=== PATIENT | female | born 1965 | race Caucasian/White ===

== ENCOUNTER 2018-07-04 20:46 | Emergency (ER) | payer BC ==
--- NOTE | 2018-07-04 21:25 | ED ---
Abdominal Pain/Female - HPI Summary HPI Summary: Patient complains of sudden onset right upper quadrant pain starting this morning. Pain described as dull, constant, worse with movement or bending. Denies prior history of same, trauma, N/V, fever, decreased by mouth intake, cough, sore throat, CP, SOB, diarrhea, change in urine, vaginal symptoms, change in BM. Medical history is PVCs. Patient on estrogen. Abdominal surgical history is totally hysterectomy, with a couple bladder lifts. Active abdominal pain 12/19. - History of Current Complaint Chief Complaint: EDAbdPain Stated Complaint: RT RIB PAIN Time Seen by Provider: 07/04/18 21:08 Hx Obtained From: Patient Onset/Duration: Sudden Onset Timing: Constant Severity Initially: Moderate Severity Currently: Moderate Pain Intensity: 6 Pain Scale Used: 0-10 Numeric Location: Discrete At: RUQ Radiates: No Character: Dull Aggravating Factor(s): Movement Alleviating Factor(s): Position Associated Signs and Symptoms: Positive: Negative Allergies/Adverse Reactions: Allergies Allergy/AdvReac Type Severity Reaction Status Date / Time No Known Allergies Allergy Verified 07/04/18 20:52 PMH/Surg Hx/FS Hx/Imm Hx Endocrine/Hematology History: Denies: Hx Anticoagulant Therapy Cardiovascular History: Reports: Other Cardiovascular Problems/Disorders - HISTORY OF PVCS Denies: Hx Cardiac Arrest GI History: Reports: Hx Gastroesophageal Reflux Disease, Hx Hiatal Hernia History: Denies: Hx Dialysis Comment Only: Other Problems/Disorders - BLADDER ISSUES Sensory History: Reports: Hx Contacts or Glasses - GLASSES Denies: Hx Hearing Aid Opthamlomology History: Reports: Hx Contacts or Glasses - GLASSES Neurological History: Denies: Hx CVA Psychiatric History: Denies: Hx Autism Comment Only: Hx Depression - DEPRESSION IN THE PAST= OKI NOW - Cancer History Hx Chemotherapy: No Hx Radiation Therapy: No - Surgical History Surgery Procedure, Year, and Place: 2 [place]IFTS[place] 2002, [place] [facility] [place] [facility] [place] Hx Anesthesia Reactions: No Infectious Disease History: No Infectious Disease History: Denies: Traveled Outside the [place] in Last 30 Days - Family History Known Family History: Positive: Unknown - Social History Lives: With Family Alcohol Use: Weekly Alcohol Amount: 2 DRINKS/WEEK Substance Use Type: Reports: None Smoking Status (MU): Heavy Every Day Tobacco Smoker Amount Used/How Often: 1/4 PPD FOR 5 YRS Length of Time of Smoking/Using Tobacco: 5 YRS Have You Smoked in the Last Year: No Review of Systems Constitutional: Negative Eyes: Negative ENT: Negative Cardiovascular: Negative Respiratory: Negative Positive: Abdominal Pain Genitourinary: Negative Musculoskeletal: Negative Skin: Negative Neurological: Negative Psychological: Normal All Other Systems Reviewed And Are Negative: Yes Physical Exam - Summary Physical Exam Summary: Positive Mix's versus rib pain. No ecchymosis, erythema, swelling, deformity noted. Abdominal exam otherwise unremarkable. Triage Information Reviewed: Yes Vital Signs On Initial Exam: Initial Vitals Temp Pulse Resp BP Pulse Ox 97.0 F 88 16 156/98 97 07/04/18 20:48 07/04/18 20:48 07/04/18 20:48 07/04/18 20:48 07/04/18 20:48 Vital Signs Reviewed: Yes Appearance: Positive: Well-Appearing Skin: Positive: Warm Head/Face: Positive: Normal Head/Face Inspection Eyes: Positive: Normal Neck: Positive: Supple Respiratory/Lung Sounds: Positive: Clear to Auscultation Cardiovascular: Positive: Normal Abdomen Description: Positive: Other: Musculoskeletal: Positive: Normal Neurological: Positive: Normal Psychiatric: Positive: Normal AVPU Assessment: Alert - [place] Coma Scale Best Eye Response: 4 - Spontaneous Best Motor Response: 6 - Obeys Commands Best Verbal Response: 5 - Oriented Coma Scale Total: 15 Diagnostics - Vital Signs Vital Signs Temp Pulse Resp BP Pulse Ox 07/04/18 20:48 97.0 F 88 16 156/98 97 - Laboratory Result Diagrams: 07/04/18 21:27 07/04/18 21:27 Lab Statement: Any lab studies that have been ordered have been reviewed, and results considered in the medical decision making process. - Ultrasound No standard instances Ultrasound Interpretation Completed By: Radiologist Summary of Ultrasound Findings: Ultrasound gallbladder positive for cholelithiasis. No gallbladder wall thickening or pericholecystic fluid. Hepatic steatosis. Abdominal Pain Fem Course/Dx - Course Course Of Treatment: Patient complains of sudden onset right upper quadrant pain starting this morning. Pain described as dull, constant, worse with movement or bending. Denies prior history of same, trauma, N/V, fever, decreased by mouth intake, cough, sore throat, CP, SOB, diarrhea, change in urine, vaginal symptoms, change in BM. Medical history is PVCs. Patient on estrogen. Abdominal surgical history is totally hysterectomy, with a couple bladder lifts. Active abdominal pain 6/10. Physical exam:Positive Mix's versus rib pain. No ecchymosis, erythema, swelling, deformity noted. Abdominal exam otherwise unremarkable. Vital signs within normal limits. Labs unremarkable. Ultrasound gallbladder positive for clue physis without any indication of code the cystitis. Physical exam and symptoms fever chest wall pain versus biliary colic. This is first onset of this pain. Patient has been advised to observe pain and pattern of onset, specifically whether related to eating or not. Any internal trial of ibuprofen 600 mg 3 times a day for chest wall pain. Patient understands and improves a plan. - Diagnoses Provider Diagnoses: Right upper quadrant pain Discharge - Sign-Out/Discharge Documenting (check all that apply): Patient Departure - Discharge Plan Condition: Stable Disposition: HOME Patient Education Materials: Chest Wall Pain (ED), Biliary Colic (ED) Referrals: Vin Lorenz MD [Primary Care Provider] - Luis Manuel Medina DO [Doctor of Osteopathy] - Additional Instructions: Try 600 mg ibuprofen 3 times a day for a few days to see if right-sided pain improves. If symptoms appear to be related to eating, associated with nausea and vomiting, follow-up with primary care to arrange for further evaluation with either GI or Gen. surgery. He turned to the ED for any new or worsening symptoms. - Billing Disposition and Condition Condition: STABLE Disposition: Home
[2018-07-04 21:37] LABS: ABS Basophils 0.1 10^3/ul (0-0.2); ABS Eosinophils 0.2 10^3/ul (0-0.6); ABS Lymphocytes 3.3 10^3/ul (1.0-4.8); ABS Monocytes 0.5 10^3/ul (0-0.8); ABS Neutrophils 3.7 10^3/ul (1.5-7.7); ABS Nucleated RBC 0 10^3/ul; Eosinophil % 3.2 %; Hematocrit 39 % (35-47); Hemoglobin 12.8 g/dl (12.0-16.0); Lymphocyte % 41.8 %; Mean Corpuscular HGB Conc 33 g/dl (31-36); Mean Corpuscular Hemoglobin 29 pg (27-31); Mean Corpuscular Volume 87 fL (80-97); Mean Platelet Volume 6.9 fL (7.4-10.4); Nucleated Red Blood Cells % 0.1; Platelet Count 290 10^3/ul (150-450); Red Cell Distribution Width 14 % (10.5-15); White Blood Count 7.8 10^3/ul (3.5-10.8)
[2018-07-04 21:39] LABS: Urine Appearance Clear; Urine Bilirubin Negative (Negative); Urine Blood Negative (Negative); Urine Color Yellow; Urine Glucose Negative (Negative); Urine Ketones Negative (Negative); Urine Nitrite Negative (Negative); Urine Protein Negative (Negative); Urine Specific Gravity 1.019 (1.010-1.030); Urine Urobilinogen Negative (Negative)
[2018-07-04 21:54] LABS: Albumin 3.7 g/dL (3.2-5.2); Albumin/Globulin Ratio 1.2 (1-3); BUN/Creatinine Ratio 19.2 (8-20); C Reactive Protein 4.62 mg/L (<8.01); Calcium 9.2 mg/dL (8.6-10.3); EGFR Non-African American 77.6 (>60); Potassium 3.7 mmol/L (3.5-5.0); Total Bilirubin 0.2 mg/dL (0.2-1.0); Total Protein 6.7 g/dL (6.4-8.9)
[2018-07-04] MEDS ORDERED: Ibuprofen TAB* 600 MG PO ONE (22:54)
[2018-07-04] MEDS ORDERED: HYDROcodone/ACETAMIN 5-325 MG* 1 TAB PO ONE (22:54)
[2018-07-04 23:19] VITALS: BP 148/99
== END 2018-07-04 23:18 | disposition home or self-care (01) ==
LOC: ED 20:46
DX: R10.11 Right upper quadrant pain (principal); K80.20 Calculus of gallbladder without cholecystitis without obstruction; K76.0 Fatty (change of) liver, not elsewhere classified; Z90.710 Acquired absence of both cervix and uterus; Z87.891 Personal history of nicotine dependence
CPT/HCPCS: 36415; 76705; 80053; 81003; 83605; 83690; 85025; 86140; 99283; A9270-GY

== ENCOUNTER → 2018-07-28 05:51 | Day surgery (SDC) | payer BC ==
[~2018-07-28 05:51] MED LIST: Acetaminophen IV 1GM/100ML * 1,000 MG/100 ML VIAL IVPB ONE; Acetaminophen IV 1GM/100ML * 100 ML ONE; Buffered Lidocaine 1% SYRIN* 1 ML/SYRINGE INTRADERM ONE; Bupivacaine 0.25% W/EPI* 10 ML SDV ONE; Dexamethasone IV* 4 MG/ML 1 ML (4 MG) ONE; DiMENhydriNATE IV* 50 MG/ML VIAL IV PUSH PRN; DiMENhydriNATE IV* 50 MG/ML VIAL ONE; Famotidine IV* 10 MG/ML 2 ML (20 mg) IV ONE; Famotidine IV* 10 MG/ML 2 ML (20 mg) ONE; Glycopyrrolate IV* 0.2 MG/ML 1 ML VIAL ONE; HYDROmorphone INJ1* 1 MG/ML SYRINGE IV PRN; HYDROmorphone INJ1* 1 MG/ML SYRINGE ONE; Iohexol 300 (CONTRAST) 100 ML SDV IV ONE; Ketorolac INJ* 30 MG/ML 1 ML VIAL ONE; Lactated Ringers 1000 ML Bag* 1,000 ML IV SCH; Lidocaine 2% PF * 5 ML VIAL ONE; Midazolam* 1 MG/ML 5 ML VIAL (5 MG) ONE; Naloxone* 0.4 MG/ML 1 ML VIAL IV PRN; Neostigmine Methylsulfate* 1 MG/ML 10 ML VIAL (1 mg/ml) ONE; Ondansetron INJ* 2 MG/ML VIAL ONE; Propofol* 10 MG/ML 20 ML BTL ONE; Rocuronium* 10 MG/ML VIAL ONE; Scopolamine 1.5 mg* PATCH TRANSDERM PRN; Succinylcholine* 20 MG/ML 10 ML VIAL ONE; ceFAZolin 2 GM PREMIX in ORs 2 GM/50 ML BAG IVPB ONE; fentaNYL* 50 MCG/ML 2 ML VIAL (100 MCG VIAL) ONE
--- NOTE | 2018-07-28 08:29 | OP ---
Operative Report - Blank - Operative Report Date of Operation: 07/28/18 Note: Brief Operative Note Preop Dx: symptomatic cholelithiasis Postop Dx: same Procedure: Laparoscopic cholecystectomy Anesthesia: GET Surgeon: Rhonda Coordinator Volunteer Services: WILLARD Maria; SARITHA Garza Fluids: 1200 ml EBL: < 25 ml Specimen: gallbladder Drains: none Findings: dictated
[2018-07-28 10:25] VITALS: BP 130/75
--- NOTE | 2018-07-28 21:17 | OP ---
CC: Dr. Lorenz; Dr. Randle * DATE OF OPERATION: 07/28/18 - [facility] DATE OF : 65 SURGEON: Salvador Ellis MD TRANSCRIPTIONIST: WILLARD Haines ANESTHESIOLOGIST: Dr. Isidro. ANESTHESIA: General anesthetic, local infiltration. PRE-OP DIAGNOSIS: Chronic cholecystitis. POST-OP DIAGNOSIS: Chronic cholecystitis. OPERATIVE PROCEDURE: Laparoscopic cholecystectomy. DESCRIPTION OF PROCEDURE: The patient was supine on the operating room table. After adequate general anesthetic, compression stockings, Jordan Hugger warmer, and intravenous antibiotics, the abdomen was prepped with antiseptic, draped in a sterile fashion. Local infiltrative anesthesia was administered, 1% lidocaine and Marcaine, and the right upper quadrant incision was created. A 5- mm Visiport cannula was placed under direct vision. Insufflation was carried out with carbon dioxide. There was no evidence of injury in that region. Additional cannulae of 5 mm in periumbilical and right anterior axillary line and 12 mm in subxiphoid were placed through small stab wounds under direct vision. Gallbladder was tended upwards. The areolar tissue was taken down off the cystic duct and cystic artery. Critical view of safety was obtained. Cystic artery and duct were clipped and divided. Gallbladder was taken off the liver bed using electrocautery. Hemostasis was excellent. The gallbladder was removed through the subxiphoid port without difficulty. Hemostasis was again confirmed. Pneumoperitoneum was allowed to escape, and skin was closed with 5- 0 Vicryl followed by Steri-Strips. She tolerated the procedure well, was awoken and brought to Recovery in good condition. No complications. No drains. Pathologic specimen is gallbladder. Sponge and instrument counts correct. Estimated blood loss is 10 to 20 mL. [id number] #: [id number] MTDD
== END | disposition home or self-care (01) ==
LOC: OR 05:51
PROVIDERS: ATTEND Surgery
DX: K80.10 Calculus of gallbladder with chronic cholecystitis without obstruction (principal); F17.210 Nicotine dependence, cigarettes, uncomplicated
CPT/HCPCS: 88304; J0330; J0690; J1100; J1170; J1240; J1885; J2250; J2405; J2704; J2710; J3010

== ENCOUNTER → 2018-08-26 11:49 | Day surgery (SDC) | payer BC ==
[~2018-08-26 11:49] MED LIST changes: -Acetaminophen IV 1GM/100ML * 1,000 MG/100 ML VIAL IVPB ONE; -Acetaminophen IV 1GM/100ML * 100 ML ONE; -Bupivacaine 0.25% W/EPI* 10 ML SDV ONE; +Dexamethasone TAB* 4 MG ONE; +Dexamethasone TAB* 4 MG PO ONE; -DiMENhydriNATE IV* 50 MG/ML VIAL ONE; -Glycopyrrolate IV* 0.2 MG/ML 1 ML VIAL ONE; +HYDROcodone/ACET. 7.5/325 LIQ* 15 ML UDC ONE; -HYDROmorphone INJ1* 1 MG/ML SYRINGE IV PRN; -HYDROmorphone INJ1* 1 MG/ML SYRINGE ONE; -Iohexol 300 (CONTRAST) 100 ML SDV IV ONE; -Ketorolac INJ* 30 MG/ML 1 ML VIAL ONE; +Lidocain 1% EPI 1:100,000 * 30 ML MDV ONE; +Lidocaine 4% TOPICAL* 50 ML TOP.SOLN ONE; +Metoprolol Tartrate IV* 1 MG/ML 5 ML VIAL ONE; +Morphine VIAL* 4 MG/ML VIAL (1 ml vial) IV PRN; -Neostigmine Methylsulfate* 1 MG/ML 10 ML VIAL (1 mg/ml) ONE; -Ondansetron INJ* 2 MG/ML VIAL ONE; +Ondansetron ODT TAB* 4 MG ONE; +Ondansetron TAB* 4 MG PO ONE; +Oxymetazoline 0.05% NASAL SPR* 15 ML BTL ONE; +PROCHLORPERAZINE INJ 5 MG/ML 2 ML VIAL IV PRN; -Rocuronium* 10 MG/ML VIAL ONE; +Scopolamine PATCH Remove* 1 NOTE MISC PATCH OFF ONE; -Succinylcholine* 20 MG/ML 10 ML VIAL ONE; -ceFAZolin 2 GM PREMIX in ORs 2 GM/50 ML BAG IVPB ONE; +fentaNYL* 50 MCG/ML 2 ML VIAL (100 MCG VIAL) IV PRN; +hydrALAZINE IV* 20 MG/ML VIAL ONE; +oxyCODONE/Acetamin 5/325 MG* TAB PO PRN
[2018-08-26 16:05] VITALS: BP 131/93
--- NOTE | 2018-08-26 20:55 | OP ---
DATE OF OPERATION: 08/26/18 - [facility] DATE OF : 65. SURGEON: Bola Lynch MD ANESTHESIA: General laryngeal mask airway anesthesia. PRE-OP DIAGNOSIS: Septal deviation, inferior turbinate hypertrophy. POST-OP DIAGNOSIS: Septal deviation, inferior turbinate hypertrophy. OPERATIVE PROCEDURE: Nasal septoplasty with submucous resection of the inferior turbinates. COMPLICATIONS: None. DISPOSITION: Good. SPECIMEN: None. BLOOD LOSS: Minimum. DESCRIPTION OF PROCEDURE: The patient was taken to the operating room and placed in the supine position on the operating table, maintained with IV sedation, she was maintained with laryngeal mask airway anesthesia. Her nose was packed with cottonoids and impregnated with oxymetazoline and 4% lidocaine. She was draped for the surgery. Packs were removed and the septum and inferior turbinates were injected with 1% lidocaine and 1:100,000 epinephrine. She had severe septal deviation to the right side. A hemitransfixion incision was made on the left anterior septum. Mucoperichondrial flap was raised. Bone and cartilage junction opened. Contralateral posterior flap was raised. Bony septum was removed. The [place] knife was used to make a cartilaginous window which was removed. Spurring along the maxillary crest was removed. The cartilage was softened, placed back into the mucoperichondrial pocket. The hemitransfixion incision was closed with a 4-0 chromic and then a 4-0 quilting stitch was placed. Incisions were made on the anterior inferior turbinates. [place] elevator was used to create a mucoperiosteal pocket. The nasal turbinate debrider was inserted into this pocket and submucosa was debrided and the turbinates were out-fractured. Magnetic splints smeared with antibiotic ointment were placed and sutured in place with Prolene. The patient tolerated the procedure well, no complications, and transferred to the recovery room in stable condition. [id number] #: [id number] MTDD
== END | disposition home or self-care (01) ==
LOC: OR 11:49
PROVIDERS: ATTEND Otolaryngology
DX: J34.2 Deviated nasal septum (principal); J34.3 Hypertrophy of nasal turbinates; G43.909 Migraine, unspecified, not intractable, without status migrainosus; R09.81 Nasal congestion; R06.83 Snoring; F17.210 Nicotine dependence, cigarettes, uncomplicated
CPT/HCPCS: A9270-GY; J0360; J1100; J2250; J2704; J3010; J3490; J8540